=== PATIENT | male | born 1940 | race Caucasian/White ===

== ENCOUNTER 2020-12-31 20:43 | Emergency (ER) | payer MEDICARE, OTHER ==
[~2020-12-31] VITALS: Ht 180.3 cm; Wt 86.8 kg
[~2020-12-31 20:43] MED LIST: AMLO5TAB4 PO; ASPI-1265 PO; ATEN50TA PO; ATOR80TA PO; CLIN300C53 PO; HYDR-4383 PO
[2021-01-01] MEDS ORDERED: LIDOcaine 1% W/epiNEPHrine 1:200,000 10ml vial IJ ONE
[2021-01-01] MEDS ORDERED: TETanus/Pertussis (Acell)/Diphther VAC/PF (Tdap-Adult) 0.5ml syringe IMVAC ONE
[2021-01-01] MEDS ORDERED: bacitracin 15gm ointment TP ONE
[2021-01-01 01:40] VITALS: BP 110/72
== END 2021-01-01 01:41 | disposition home or self-care (01) ==
LOC: ER 20:43
DX: S01.412A Laceration without foreign body of left cheek and temporomandibular area, initial encounter (principal); I25.10 Atherosclerotic heart disease of native coronary artery without angina pectoris; E78.00 Pure hypercholesterolemia, unspecified; I12.9 Hypertensive chronic kidney disease with stage 1 through stage 4 chronic kidney disease, or unspecified chronic kidney disease; N18.9 Chronic kidney disease, unspecified; Z98.890 Other specified postprocedural states; Z79.82 Long term (current) use of aspirin; Z79.899 Other long term (current) drug therapy; W01.0XXA Fall on same level from slipping, tripping and stumbling without subsequent striking against object, initial encounter; Y93.89 Activity, other specified; Y92.89 Other specified places as the place of occurrence of the external cause; Y99.8 Other external cause status
CPT/HCPCS: 12013; 90715; 99284

== ENCOUNTER 2021-01-02 05:13 | Emergency (ER) | payer OTHER ==
[~2021-01-02] VITALS: Ht 180.3 cm; Wt 86.4 kg
[2021-01-02 07:01] VITALS: BP 117/69
== END 2021-01-02 10:12 | disposition home or self-care (01) ==
LOC: ER 05:13
DX: M25.532 Pain in left wrist (principal); I25.10 Atherosclerotic heart disease of native coronary artery without angina pectoris; E78.00 Pure hypercholesterolemia, unspecified; I12.9 Hypertensive chronic kidney disease with stage 1 through stage 4 chronic kidney disease, or unspecified chronic kidney disease; N18.9 Chronic kidney disease, unspecified; Z79.82 Long term (current) use of aspirin; Z79.2 Long term (current) use of antibiotics; Z79.899 Other long term (current) drug therapy
CPT/HCPCS: 73110; 73200; 99284

== ENCOUNTER 2024-04-09 15:15 | Emergency (ER) | payer MEDICARE ==
[~2024-04-09] VITALS: Ht 185.4 cm; Wt 80.0 kg
[~2024-04-09 15:15] MED LIST changes: +ATOR-429 PO; -ATOR80TA PO
[2024-04-09 15:23] VITALS: BP 157/80; PULSE 92; RESP 16; O2SAT 97
[2024-04-09] MEDS: LIDOcaine 1% 30ml preserv. free vial IJ ONE (16:10)
[2024-04-09] MEDS: LIDOcaine 1% W/epiNEPHrine 1:100,000 20ml vial SQ ONE (16:20)
[2024-04-09 17:12] VITALS: TEMP 97.6
== END 2024-04-09 17:19 | disposition home or self-care (01) ==
LOC: ER 15:15
DX: S41.111A Laceration without foreign body of right upper arm, initial encounter (principal); I25.10 Atherosclerotic heart disease of native coronary artery without angina pectoris; I12.9 Hypertensive chronic kidney disease with stage 1 through stage 4 chronic kidney disease, or unspecified chronic kidney disease; N18.9 Chronic kidney disease, unspecified; E78.00 Pure hypercholesterolemia, unspecified; Z98.890 Other specified postprocedural states; Z79.82 Long term (current) use of aspirin; Z79.899 Other long term (current) drug therapy; W01.198A Fall on same level from slipping, tripping and stumbling with subsequent striking against other object, initial encounter; Y93.89 Activity, other specified; Y92.89 Other specified places as the place of occurrence of the external cause; Y99.8 Other external cause status
CPT/HCPCS: 12004; 99283; J3490; 12001; 99282; A6449; J2003